=== PATIENT | female | born 1955 | race African-American/Black ===

== ENCOUNTER 2021-10-06 18:40 | Emergency (ER) | payer OTHER ==
[~2021-10-06] VITALS: Ht 165.1 cm; Wt 92.0 kg
[2021-10-06 18:56] VITALS: BP 156/80
== END 2021-10-06 21:44 | disposition left against medical advice (07) ==
LOC: ER 18:57
DX: Z53.21 Procedure and treatment not carried out due to patient leaving prior to being seen by health care provider (principal)